=== PATIENT | female | born 1955 | race Caucasian/White ===

== ENCOUNTER → 2017-12-12 08:29 | Day surgery (SDC) | payer OTHER ==
[~2017-12-12 08:29] MED LIST: Buffered Lidocaine 0.9% SYRIN* 5 ML/SYR SYRINGE INTRADERM ONE; Buffered Lidocaine 0.9% SYRIN* 5 ML/SYR SYRINGE ONE; Lidocaine 1% INJ* 10 MG/ML 30 ML SDV ONE; Midazolam* 1 MG/ML 2 ML VIAL (2 MG) ONE; Naloxone* 0.4 MG/ML 1 ML VIAL IV PRN; fentaNYL* 50 MCG/ML 2 ML VIAL (100 MCG VIAL) ONE
--- NOTE | 2017-12-12 11:18 | BRIEFOPN ---
Brief Operative Note - Surgery Procedures: pre/postop dx: breast ca proc: powerport placement left subclavian surg: mecenas assist: none anes: local/mac; byjosephl ebl: min ivf: crystalloid spec/drain: none compl: none cond: stable to pacu
[2017-12-12 12:26] VITALS: BP 128/55
--- NOTE | 2017-12-12 13:06 | RAD ---
CPT II Codes: 6045F INDICATION: Breast cancer TECHNIQUE: Intraoperative fluoroscopy was provided during left subclavian vein Mediport placement. FINDINGS: 4 spot films depict placement of a left subclavian vein Mediport with the tip terminating at the cavoatrial junction.. Fluoroscopy time: 24.1 seconds IMPRESSION: As above.
--- NOTE | 2017-12-13 01:24 | OP ---
CC: Jyothi Pena MD * DATE OF OPERATION: 12/12/17 - SDS DATE OF : 59 SURGEON: Irwin Ring MD PIVOT END POLISHER: None. ANESTHESIOLOGIST: Francisco Javier Anderson MD ANESTHESIA: Local MAC. PRE-OP DIAGNOSIS: Breast carcinoma. POST-OP DIAGNOSIS: Breast carcinoma. OPERATIVE PROCEDURE: PowerPort placement, left subclavian approach. ESTIMATED BLOOD LOSS: Minimal. IV FLUIDS: Crystalloid. SPECIMEN: None. DRAINS: None. COMPLICATIONS: None. COUNTS: Instrument, needle, sponge counts were correct. DESCRIPTION OF PROCEDURE: The patient was brought to the operating room and placed on the table supine. Sequential compression devices were placed on both lower extremities. Intravenous sedation was administered. Her left neck and chest were prepped and draped in the usual sterile fashion. Time-out was performed. Local anesthetic was infiltrated into the skin and soft tissue for a left subclavian approach. The left subclavian vein was cannulated on first pass with a needle. A J-wire was placed under fluoroscopic guidance into the superior vena cava. The additional anesthetic was infiltrated into the left upper chest to anesthetize the site of the proposed pocket. A transverse incision was created with the scalpel and the subcutaneous tissues were divided with cautery. Subcutaneous pocket was created and a counter incision was made at the insertion site of the guidewire. An 8-[place] PowerPort was tunneled to the pocket and then a peel-away sheath and dilator were placed under fluoroscopic guidance into the superior vena cava. The dilator and wire were removed and the catheter was then threaded into the superior vena cava under fluoroscopic guidance. Positioning was confirmed. The catheter was cut to an appropriate length and connected to the port, which was secured into the pocket with a single 2-0 Prolene suture. The port was accessed and flushed easily. The pocket was closed in two layers with 3-0 Polysorb and 4-0 Monocryl for the skin. The counter incision site was closed in similar fashion. Steri- Strips were applied to the sites. The port was again accessed and this time flushed with heparinized saline. The patient tolerated the procedure well. She was transferred to Recovery in a stable condition. [id number]/[facility] #: [id number] [facility]
== END | disposition home or self-care (01) ==
LOC: OR 08:29
PROVIDERS: ATTEND Surgery
DX: C50.511 Malignant neoplasm of lower-outer quadrant of right female breast (principal); I10 Essential (primary) hypertension; E78.5 Hyperlipidemia, unspecified; F41.9 Anxiety disorder, unspecified; F90.9 Attention-deficit hyperactivity disorder, unspecified type; E03.9 Hypothyroidism, unspecified
CPT/HCPCS: 76000; C1788; J1642; J2250; J3010